=== PATIENT | female | born 1990 | race Asian ===

== ENCOUNTER 2025-06-26 08:00 | Outpatient (CLI) | payer OTHER | END 2025-06-26 10:05 | disposition home or self-care (01) | LOC: CSHULT 08:00 | PROVIDERS: ATTEND Family Medicine | DX: M79.89 Other specified soft tissue disorders (principal); R22.41 Localized swelling, mass and lump, right lower limb | CPT/HCPCS: 76999 ==

== ENCOUNTER 2025-07-12 14:33 | Outpatient (CLI) | payer OTHER ==
[~2025-07-12 14:33] MED LIST: Iopamidol 300 61% 100 ML VIAL FS ONE
== END 2025-07-12 14:34 | disposition home or self-care (01) ==
LOC: CSHCT 14:33
PROVIDERS: ATTEND Specialist
DX: R22.41 Localized swelling, mass and lump, right lower limb (principal); M62.89 Other specified disorders of muscle
CPT/HCPCS: 74177